=== PATIENT | female | born 1980 | race Caucasian/White ===

== ENCOUNTER 2021-03-23 20:26 | Emergency (ER) | payer OTHER, SELFPAY ==
--- NOTE | ~2021-03-23 | XR_ITS ---
EXAMINATION: XR shoulder LT min 2V DATE: 03/23/2021 20:55 INDICATION: Left shoulder pain. Fall. TECHNIQUE: 2 views of left shoulder were obtained. COMPARISON: None. FINDINGS: There is a comminuted fracture of proximal left humerus with fracture components of the gre ater tuberosity and surgical neck in near-anatomic alignment. The glenohumeral joint and acromioclavi cular joint are normal. IMPRESSION: 1. Comminuted one-part fracture of proximal left humerus. Reviewed, dictated and finalized at location [facility]
[2021-03-23 20:29] VITALS: BP 129/69; PULSE 82; RESP 18; TEMP 36.8; O2SAT 97
--- NOTE | 2021-03-23 20:49 | ED.FALL ---
HPI - Fall General Chief Complaint: Fall Stated Complaint: shoulder pain, fall Time Seen by Provider: 03/23/21 20:36 Source: patient Mode of arrival: ambulatory Limitations: no limitations History of Present Illness HPI Narrative: This is a 40 year old female that presents to the ER for left shoulder pain after an injury sustained just prior to arrival. Reports she fell getting out of the car. Reports landing on the shoulder. Reports decreased ROM in the shoulder due to pain. Denies hitting her head, loss of consciousness, other injuries, or numbness. Related Data Allergies Allergy/AdvReac Type Severity Reaction Status Date / Time No Known Allergies Allergy Verified 03/23/21 20:32 Review of Systems Review of Systems: CONSTITUTIONAL: Denies fever MUSCULOSKELETAL: Reports joint pain, and myalgia. NEUROLOGIC: Denies numbness, or weakness. All systems reviewed & are unremarkable except as noted in HPI and below PMFSH Past Medical History Medical History (Updated 03/23/21 @ 21:15 by Radha Moser PA-C) No active medical problems Social History Social History (Updated 03/23/21 @ 20:55 by Radha Moser PA-C) Smoking status: Never smoker Exam Narrative: GENERAL: Well-appearing, well-nourished, and in no acute distress. HEAD: Normocephalic, atraumatic. EYES: PERRLA and EOMI. ENT: Nares clear, no rhinorrhea or epistaxis. Mucous membranes moist. Oropharynx without tonsillar hypertrophy exudate or other lesions. Bilateral TMs pearly witt non-bulging NECK: Supple. No adenopathy or masses. No midline spinal tenderness CHEST: Clear to auscultation. No respiratory distress. No wheezes rales or rhonchi HEART: Regular rate and rhythm. No murmur heard. Normal peripheral pulses. EXTREMITIES: Decreased active range of motion in the left shoulder due to pain. No edema or obvious deformity. Strength equal in bilateral upper extremities (5/5). Normal radial pulses. Normal sensation SKIN: Warm, dry, no rash. NEURO: No focal deficits. Alert and oriented x3. Cranial nerves II through XII grossly intact PSYCH: Normal mood and affect Course Vital Signs Vital signs: Vital Signs Temperature 98.2 F 03/23/21 20:29 Pulse Rate 82 03/23/21 20:29 Respiratory Rate 18 03/23/21 20:29 Blood Pressure 129/69 03/23/21 20:29 Pulse Oximetry 97 03/23/21 20:29 Temperature 98.2 F 03/23/21 20:29 Pulse Rate 82 03/23/21 20:29 Respiratory Rate 18 03/23/21 20:29 Blood Pressure 129/69 03/23/21 20:29 Pulse Oximetry 97 03/23/21 20:29 MDM - Fall MDM Narrative Medical decision making narrative: Patient presents to the ER for left shoulder pain after an injury just prior to arrival. Denies hitting her head or loss of consciousness. No other injuries. Patient is neurovascularly intact. Left shoulder x-ray shows a comminuted 1 part fracture of the proximal humerus. Patient was updated on case findings. Placed in a sling. Patient is only visiting the area. Instructed that she needs to have close follow-up with an orthopedic doctor back home. She was given warnings to return to the ER Imaging Data Radiologist's impression: ITS Impressions Shoulder X-Ray 03/23/21 21:02 IMPRESSION: 1. Comminuted one-part fracture of proximal left humerus. Critical Care Time Critical Care Time Critical Care Time: No Discharge Plan Discharge Clinical Impression: Closed fracture of proximal end of left humerus Qualifiers: Encounter type: initial encounter Fracture morphology: unspecified fracture morphology Qualified Code(s): S42.202A - Unspecified fracture of upper end of left humerus, initial encounter for closed fracture Patient Disposition: Home, Self-Care Condition: Stable Instructions: Proximal Humerus Fracture (ED) Additional Instructions: Return to the emergency department if you experience fever, redness and swelling of your arm, numbness, or any other symptoms that are concerning to you
[2021-03-23] MEDS: HYDROcodone/acetaminophen (*CRX) 5-325 MG TABLET 1 TAB PO (21:02)
[2021-03-23 21:26] VITALS: BP 148/88; PULSE 84; RESP 16; TEMP 36.3; O2SAT 100
== END 2021-03-23 21:29 | disposition home or self-care (01) ==
PROVIDERS: Emergency Provider Emergency Medicine
DX: S42.212A Unspecified displaced fracture of surgical neck of left humerus, initial encounter for closed fracture (principal); S42.252A Displaced fracture of greater tuberosity of left humerus, initial encounter for closed fracture; W17.89XA Other fall from one level to another, initial encounter
CPT/HCPCS: 73030; 99284; A4565; A9270